=== PATIENT | male | born 1940 | race Caucasian/White ===

== ENCOUNTER 2017-02-20 13:06 | Outpatient (CLI) | payer OTHER ==
[2016-09-03 14:10] VITALS: O2SAT 98
== END 2017-02-20 13:07 | disposition home or self-care (01) | DRG 74 ==
LOC: CONVCARE 13:06
PROVIDERS: ATTEND Orthopaedic Surgery
DX: G57.02 Lesion of sciatic nerve, left lower limb (principal)
CPT/HCPCS: 73502

== ENCOUNTER 2019-01-21 09:29 | Outpatient (CLI) | payer OTHER ==
[2016-09-03 14:10] VITALS: O2SAT 98
== END 2019-01-21 09:30 | disposition home or self-care (01) | DRG 556 ==
LOC: CONVCARE 09:29
PROVIDERS: ATTEND Orthopaedic Surgery
DX: M79.18 Myalgia, other site (principal); M13.80 Other specified arthritis, unspecified site
CPT/HCPCS: 73502